=== PATIENT | female | born 1990 | race Caucasian/White ===

== ENCOUNTER 2017-01-21 17:29 | Emergency (ER) | payer OTHER, BC ==
[2017-01-21] MEDS ORDERED: AMOXICILLIN TR/POT CLAVULANATE 500-125 MG TAB PO ONE (17:40)
[2017-01-21] MEDS ORDERED: DIPH/PERTUSS(ACELL)/TETANUS VAC/PF 0.5 ML SYR (>=10YO) IM ONE (17:47)
--- NOTE | 2017-01-21 17:47 | ER Document Report ---
ED Animal Bite - General Chief Complaint: Dog Bite Stated Complaint: DOG BITE Time Seen by Provider: 01/21/17 17:33 - HPI Patient complains to provider of: dog bite Location of injury: Face - chin b/l to her mouth Severity of injury: Bitten, Mucous membrane intact. 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 Quality of pain: No pain Context of attack: Other - she had collected a fecal sample and was trying to comfort the dog when he bit her twice Type of animal: Dog Appearance of animal: Appeared well Breed and color: Boxer Animal's immunizations: UTD Animal captured or known: Yes Animal control form completed: Yes Past Medical History - Social History Smoking Status: Never Smoker Family History: Reviewed & Not Pertinent Review of Systems - Review of Systems Constitutional: No symptoms reported Musculoskeletal: No symptoms reported Skin: See HPI -: Yes All other systems reviewed and negative Physical Exam - Vital signs Vitals: Temp Pulse Resp BP Pulse Ox 98.5 F 104 H 16 147/89 H 98 01/21/17 17:50 01/21/17 17:50 01/21/17 17:50 01/21/17 17:50 01/21/17 17:50 - General General appearance: Appears well, Alert In distress: None - HEENT Head: Normocephalic, Atraumatic Eyes: Normal. No: Pale conjunctiva, Periorbital ecchymosis, Periorbital edema, Scleral icterus, Tears, Other Conjunctiva: Normal. No: Icteric, Injected, Purulent discharge, Other Extraocular movements intact: Yes Eyelashes: Normal Pupils: PERRL Sinus: Normal. No: Tenderness Nasal: Normal. No: Bloody discharge, Joshua deformity, Ecchymosis, Epistaxis, Septal hematoma Mouth/Lips: Normal. No: Angioedema, Caries, Dental fracture, Laceration, Lesions, Other Mucous membranes: Normal - Neurological Neuro grossly intact: Yes Cognition: Normal Orientation: AAOx4 Parmelee Coma Scale Eye Opening: Spontaneous [place]lee Coma Scale Verbal: Oriented Parmelee Coma Scale Motor: Obeys Commands Jennifer Coma Scale Total: 15 Speech: Normal - Skin Skin irregularity: Laceration - one laceration each lateral to her mouth bilaterally measuring .5 cm, superfical for both. two lacerations on her chin the larger of the two measuring 1cm inlength superfical without mucosal involvement Course - Re-evaluation Re-evalutation: 01/22/17 17:40 Patient is a 26-year-old female hemodynamic stable, no acute distress and afebrile. Wound irrigated at the bedside using Betadine dressed with bacitracin. No indication for closure at this time. Patient initiated on Augmentin and given signs and symptoms to be aware of indicating return to the emergency department. Patient agrees with plan. - Vital Signs Vital signs: Temp Pulse Resp BP Pulse Ox 98.5 F 104 H 16 147/89 H 98 01/21/17 17:50 01/21/17 17:50 01/21/17 17:50 01/21/17 17:50 01/21/17 17:50 Discharge - Discharge Clinical Impression: Dog bite Qualifiers: Encounter type: initial encounter Qualified Code(s): W54.0XXA - Bitten by dog, initial encounter Condition: Good Disposition: HOME, SELF-CARE Instructions: Animal Bites ([facility]), Antibiotic Ointment Protection ([facility]) Additional Instructions: Please be sure to clean the wounds twice a day with gentle soap and water. Dressed with bacitracin ointment and otherwise keep dry and open to air. Please be aware of any signs of ovalles drainage, redness, swelling, worsening pain , fevers or chills. Prescriptions: Amox Tr/Potassium Clavulanate [Augmentin 875-125 Tablet] 1 tab PO BID 5 Days tablet Forms: Return to Work
[2017-01-21 18:08] VITALS: BP 147/89
== END 2017-01-21 18:40 | disposition home or self-care (01) ==
LOC: ER 17:29
DX: S00.572A Other superficial bite of oral cavity, initial encounter (principal); S00.87XA Other superficial bite of other part of head, initial encounter; W54.0XXA Bitten by dog, initial encounter; Y93.K9 Activity, other involving animal care; Y92.59 Other trade areas as the place of occurrence of the external cause; Y99.0 Civilian activity done for income or pay
CPT/HCPCS: 90471; 90715; 99283

== ENCOUNTER 2019-03-05 09:50 | Day surgery (SDC) | payer BC, OTHER ==
[~2019-03-05 09:50] MED LIST: PROPOFOL INJ 200 MG/20 ML VIAL IV ONE
[2019-03-05] MEDS ORDERED: PROPOFOL INJ 200 MG/20 ML VIAL IV ONE (11:43)
[2019-03-05] MEDS ORDERED: SIMETHICONE 80 MG TAB.CHEW ONE (12:23)
[2019-03-05 12:30] VITALS: BP 128/79
--- NOTE | 2019-03-05 12:59 | Operative Report ---
Operative Report DATE OF SURGERY: 03/05/19 Operative Report: Risks, benefits and alternatives of the procedure including the risk of bleeding, perforation requiring surgery have been explained to the patient in detail and informed consent has been obtained. The patient is taken back to the endoscopy suite and placed in the left, lateral decubital position. Timeout was called. Propofol medication is administered. Rectal examination is done which did not reveal any masses, tears or fissures. An Olympus videoscope was introduced into the patient's rectum. Scope was then carefully advanced all the way to the cecum. Cecum was identified by the usual anatomical landmarks of the ileocecal valve as well as the appendiceal office. Photodocumentation is obtained. Scope was then sequentially pulled back via the various segments of the colon including the ascending colon, hepatic flexure, transverse colon, spl enic flexure, descending colon finding to the rectosigmoid portions of the colon. Retroflexion maneuvers performed. PREOPERATIVE DIAGNOSIS: Change in bowel habits previous history of C. difficile colitis. Has been treated POSTOPERATIVE DIAGNOSIS: No pseudomembranous colitis which is pathognomonic for C. difficile colitis. Terminal ileitis status post biopsy rule out Crohn's disease. Random biopsies taken on the right side of the colon to rule out for collagenous, lymphocytic, microscopic colitis for her change in bowel habits. Could be a postinfectious IBS OPERATION: Colonoscopy with biopsy SURGEON: BECKY HURLEY ANESTHESIA: LMAC TISSUE REMOVED OR ALTERED: As noted above. COMPLICATIONS: None. ESTIMATED BLOOD LOSS: None. INTRAOPERATIVE FINDINGS: As noted above. PROCEDURE: Patient tolerated the procedure well. No immediate postprocedure complications are noted. Patient is discharged in good condition. Discharge date 03/05/2019. Discharge diet: Regular. Discharge activity: Regular. 2 to 3-week follow-up to discuss findings. Patient is instructed to call the office or proceed to the emergency room should there be any further problems or questions. Wait on the pathology.
== END 2019-03-05 12:25 | disposition home or self-care (01) ==
LOC: END 09:50
PROVIDERS: ATTEND Internal Medicine Gastroenterology
DX: K52.9 Noninfective gastroenteritis and colitis, unspecified (principal); Z09 Encounter for follow-up examination after completed treatment for conditions other than malignant neoplasm; Z86.19 Personal history of other infectious and parasitic diseases; J45.909 Unspecified asthma, uncomplicated; Z79.899 Other long term (current) drug therapy
CPT/HCPCS: 45380; 88305 ×2; 00811; J2704; 811